=== PATIENT | male | born 1975 | race Hispanic/Latino ===

== ENCOUNTER 2018-11-18 21:30 | Observation (INO) | payer OTHER ==
[~2018-11-18] VITALS: Ht 165.1 cm; Wt 87.1 kg
[2018-11-18] MEDS ORDERED: NITROGLYCERIN 2% OINT 1 GM PKT TOP ONE (21:45)
[2018-11-18] MEDS ORDERED: ASPIRIN 81 MG CHEW TAB PO NR (21:45)
[2018-11-18 21:48] LABS: BASOPHILS # (AUTO) 0.1 (0.0-0.1); BASOPHILS % 1.1 % (0.0-1.0); EOSINOPHILS # (AUTO) 0.1 (0.0-0.4); EOSINOPHILS % 1.7 % (0.0-6.0); HEMATOCRIT 43.3 % (38.2-49.6); HEMOGLOBIN 15.5 g/dL (14.0-18.0); LYMPHOCYTES # (AUTO) 2.8 (1.0-3.2); LYMPHOCYTES % 35.2 % (18.0-39.1); MEAN CORPUSCULAR HEMOGLOBIN 30.9 pg (28-32); MEAN CORPUSCULAR HGB CONC 35.8 g/dL (31-35); MEAN CORPUSCULAR VOLUME 86.3 fL (81-99); MONOCYTES # (AUTO) 0.5 (0.2-0.8); MONOCYTES % 6.9 % (4.4-11.3); NEUTROPHILS # (AUTO) 4.3 (2.1-6.9); PLATELET COUNT 121 x10e3/uL (140-360); RED BLOOD COUNT 5.02 x10e6/uL (4.3-5.7); RED CELL DISTRIBUTION WIDTH 12.2 % (11.7-14.4)
[2018-11-18 21:54] LABS: INR 0.89; PROTHROMBIN TIME 12.9 seconds (11.9-14.5)
[2018-11-18 21:55] LABS: PARTIAL THROMBOPLASTIN TIME 33.1 seconds (23.8-35.5)
[2018-11-18 22:02] LABS: CLARITY,URINE CLEAR (CLEAR); COLOR,URINE YELLOW (YELLOW); LEUKOCYTE ESTERASE ,URINE NEGATIVE (NEGATIVE); NITRITE,URINE NEGATIVE (NEGATIVE)
[2018-11-18 22:03] LABS: BACTERIA,URINE FEW /HPF; BILIRUBIN,URINE NEGATIVE (NEGATIVE); EPITHELIAL CELLS,URINE FEW /LPF; KETONES,URINE NEGATIVE (NEGATIVE); PROTEIN,URINE DIPSTICK TRACE (NEGATIVE); URINE UROBILINOGEN 0.2 mg/dL (0.2 - 1)
[2018-11-18 22:06] LABS: ALANINE AMINOTRANSFERASE 42 IU/L (0-55); ALBUMIN 4.3 g/dL (3.5-5.0); ALBUMIN/GLOBULIN RATIO 1.3 (0.8-2.0); ALKALINE PHOSPHATASE 37 IU/L (40-150); ANION GAP 13.3 mmol/L (8-16); BLOOD UREA NITROGEN 11 mg/dL (7-26); BUN/CREATININE RATIO 12 (6-25); CARBON DIOXIDE 26 mmol/L (22-29); CHLORIDE 102 mmol/L (98-107); CREATINE KINASE 157 IU/L (30-200); CREATININE, SERUM 0.93 mg/dL (0.72-1.25); EST GLOMERULAR FILTRATION RATE > 60 ML/MIN (60-); GLUCOSE 92 mg/dL (74-118); POTASSIUM 3.3 mmol/L (3.5-5.1); SODIUM 138 mmol/L (136-145)
[2018-11-18] MEDS ORDERED: ASPIRIN 81 MG CHEW TAB ONE (22:25)
[2018-11-18] MEDS ORDERED: POTASSIUM CHLORIDE 20 MEQ TAB CR PO STA (22:49)
--- NOTE | 2018-11-18 22:57 | Diagnostic Imaging Report ---
EXAMINATION: CHEST SINGLE (PORTABLE) INDICATION: CHEST PAIN COMPARISON: None FINDINGS: AP view TUBES and LINES: None. LUNGS: Lungs are not well inflated. There is no evidence of pneumonia or pulmonary edema. PLEURA: No pleural effusion or pneumothorax. HEART AND MEDIASTINUM: The cardiomediastinal silhouette is unremarkable. BONES AND SOFT TISSUES: No acute osseous lesion. Soft tissues are unremarkable. UPPER ABDOMEN: No free air under the diaphragm. IMPRESSION: No acute thoracic abnormality. Signed by: DR. Tamir Roberson MD on 11/18/2018 10:54 PM
[2018-11-18] MEDS ORDERED: SODIUM CHLORIDE FLUSH 10 ML SYR INJ PRN (23:15)
[2018-11-18] MEDS ORDERED: ONDANSETRON HCL INJ 2MG/ML 2ML 2 MG/ML VIAL IV PRN (23:15)
--- OUTSIDE RECORDS SUMMARY | 2018-11-18 23:15 | XMS REPORT ---
Author Author [facility] Address Unknown Phone Unavailable Care Team Providers Care Group Cio Name Role Phone Luciano VELSAQUEZ Unavailable Unavailable Problems This patient has no known problems. Allergies, Adverse Reactions, Alerts This patient has no known allergies or adverse reactions. Medications This patient has no known medications. Results Test Description Test Time Test Comments Text Results Atomic Results Result Comments CHEST SINGLE (PORTABLE) 2018-11-18 22:53:00 [facility] [address] [place] [address] Patient Name: SHARON MANNING MR #: [id number] : 1975 Age/Sex: 43/M Req #: [id number] Adm Physician: Ordered by: PRASHANTH VELASQUEZ MD Report #: [id number] Location: ER Room/Bed: Procedure: [id number] DX/CHEST SINGLE (PORTABLE) Exam Date: 11/18/18 Exam Time: 2144 REPORT STATUS: Signed EXAMINATION: CHEST SINGLE (PORTABLE) INDICATION: CHEST PAIN COMPARISON: None FINDINGS: AP view TUBES and LINES: None. LUNGS: Lungs are not well inflated. There is no evidence of pneumonia or pulmonary edema. PLEURA: No pleural effusion or pneumothorax. HEART AND MEDIASTINUM: The cardiomediastinal silhouette is unremarkable. BONES AND SOFT TISSUES: No acute osseous lesion. Soft tissues are unremarkable. UPPER ABDOMEN: No free air under the diaphragm. IMPRESSION: No acute thoracic abnormality. Signed by: DR. Tamir Roberson MD on 11/18/2018 10:54 PM Dictated By: TAMIR ROBERSON MD 53 Transcribed By: KATIE on 11/18/182253 COPY TO: PRASHANTH VELASQUEZ MD
[2018-11-18] MEDS: FAMOTIDINE 20 MG/2 ML VIAL IV SCH (23:48)
[2018-11-19] VITALS (8 sets, daily range): BP systolic 101–130; BP diastolic 59–85
--- NOTE | 2018-11-19 00:10 | NUR ---
RECEIVED REPORT FROM HUNTER DONG NURSE. PATIENT ARRIVED TO THE UNIT VIA WHEELCHAIR.
[2018-11-19] MEDS: NITROGLYCERIN 2% OINT 1 GM PKT TOP SCH ×4 (04:51→18:00)
--- NOTE | 2018-11-19 06:03 | NUR ---
PATIENT IS RESTING IN BED. AT BEDSIDE. CALL DAVIS WITHIN REACH.
--- NOTE | 2018-11-19 06:56 | NUR ---
Report given to oncoming nurse. Patient is lying in bed. no pain or distress. call light within reach.
--- NOTE | 2018-11-19 07:00 | NUR ---
Walking rounds done. Patient denies any chest pain or SOB at this time. POC discussed in Bhutanese per patient preference. He was instructed to call for assistance and verbalized understanding. Bed in lowest position, locked and call castillo within reach.
[2018-11-19 08:06] LABS: CREATINE KINASE 108 IU/L (30-200)
[2018-11-19 08:07] LABS: CHOL/HDL RATIO 5.7 (3.9-4.7)
[2018-11-19] MEDS: FAMOTIDINE 20 MG/2 ML VIAL IV SCH (08:46)
[2018-11-19] MEDS ORDERED: ASPIRIN 81 MG ENTERIC COATED PO SCH (09:00)
[2018-11-19] MEDS ORDERED: ACETAMINOPHEN 325 MG TAB PO PRN (10:45)
--- NOTE | 2018-11-19 12:42 | NUR ---
SOCIAL WORK INITIAL ASSESSMENT Cargo Operations Agent to bedside to discuss plan of care with patient/family. CM/SW role and care transitions discussed. Anticipated discharge plan discussed along with duration of care. CM/SW discussed patients right to make decisions in care. CM/SW work hours given. Patient lives: IN OWN HOUSE WITH FAMILY Admit/Transfer: VIA ED POA/Emergency contact: GRACIE [phone] Current/Previous Home Health: NONE PCP/Follow-up Care: NONE Current/Previous DME: NONE Other Services: NONE Employment Status: [employer] Areas of Concerns: NONE Referral Needs: NONE Education Needs: NONE IMM/VIEYRA given and signed (if applicable): NA Goal for discharge: RETURN HOME CM/SW left business card at the bedside with contact information. Name and number was also written on the patients whiteboard. Patient verbalized understanding of discussion. CM will follow-up with ongoing discharge and transition of care needs.
--- NOTE | 2018-11-19 12:44 | NUR ---
POST DISCHARGE STATUS FORM FILED ON CHART NO NEEDS
--- NOTE | 2018-11-19 15:09 | Consultation ---
DATE OF CONSULTATION: November 19, 2018 CARDIOLOGY CONSULTATION INDICATIONS: Chest pain. Mr. Williamson is a 43-year-old gentleman without medical problems who smokes, who comes in with 2 to 3 days of sharp chest pain and back pain. This is nonexertional. He has never had these symptoms before. Denies any history of coronary artery disease. PAST MEDICAL HISTORY: Listed above. SOCIAL HISTORY: Patient smokes. Occasionally drinks alcohol. FAMILY HISTORY: Significant for premature coronary artery disease in his mother. REVIEW OF SYSTEMS: Negative except as dictated in the history of present illness. PHYSICAL EXAMINATION VITALS: Afebrile, heart rate 64, blood pressure 107/62, O2 sats 96%. CARDIOVASCULAR: Regular rhythm. No murmurs or gallops. LUNGS: Clear to auscultation bilaterally. ABDOMEN: Soft. Bowel sounds are adequate. Troponin is negative. LDL is 74. Remaining labs were reviewed and are normal. Chest x-ray shows no acute changes. EKG is normal. ASSESSMENT: Unstable angina. RECOMMENDATIONS: Rule out myocardial infarction by serial check of cardiac enzymes. Further risk stratification with echocardiogram and exercise nuclear stress test. I thank Dr. Palmer for this consultation. Job#: [id number]
[2018-11-19 15:59] LABS: CREATINE KINASE 92 IU/L (30-200)
--- NOTE | 2018-11-19 16:04 | Cardiology Report ---
DATE OF STUDY: November 19, 2018 PROCEDURE TITLE: Rest stress single isotope SPECT imaging with exercise stress and gated SPECT imaging. INDICATIONS: Chest pain. PROCEDURE: The patient performed treadmill exercise using a Luis Alberto protocol, exercising for 8 minutes 42 seconds to stage 3 and completing estimated work load of 10.1 metabolic equivalents (METs). The test was terminated due to fatigue. The heart rate was 71 beats per minute at rest and increased to 109 beats at peak exercise, which was 63% of the maximum predicted heart rate. The rest blood pressure was 101/75 and increased to 126/80, which is a normal response. The resting electrocardiogram demonstrated normal sinus rhythm. There were no ST-segment changes consistent myocardial ischemia. Myocardial perfusion imaging was performed at rest following the injection of 11 mCi of tetrofosmin. At peak exercise, the patient was injected with 30.2 mCi of tetrofosmin and exercise was continued for 1 minute. Gated post stress tomographic imaging was performed. The overall quality of the study is fair. Left ventricular cavity is noted to be normal size on the rest and stress studies. SPECT images demonstrate homogeneous trace effusion distribution throughout the myocardium. Gated SPECT imaging reveals normal myocardial thickening and wall motion. The left ventricular ejection fraction was found to be 60%. IMPRESSION: Myocardial perfusion imaging is normal at submaximal stress. Overall left ventricular systolic function was normal without regional or wall motion abnormalities. Job#: [id number] JOYCE
--- NOTE | 2018-11-19 18:00 | NUR ---
Dr. Camacho paged to follow up regarding stress test result, message left. Awaiting call back
--- NOTE | 2018-11-19 18:11 | NUR ---
Per Dr. Camacho patient may be discharged home and follow up in [address] Palmer paged to update and obtain POC.
--- NOTE | 2018-11-19 18:30 | NUR ---
Per Dr. Palmer patient may be discharged home today. He can take over the counter Omeprazole 20 mg PO daily and follow up in 1 week.
--- NOTE | 2018-11-19 19:00 | NUR ---
Report given to oncoming shift.
[2018-11-19] MEDS ORDERED: OMEPRAZOLE40 MG PO (19:02)
== END 2018-11-19 19:28 | disposition home or self-care (01) ==
LOC: ER 21:30 → ERHOLD 23:12 → IMCU 11-19 01:42
PROVIDERS: ADMIT Internal Medicine; ATTEND Internal Medicine
DX: I20.0 Unstable angina (principal); Z82.49 Family history of ischemic heart disease and other diseases of the circulatory system; F17.210 Nicotine dependence, cigarettes, uncomplicated
CPT/HCPCS: 36415 ×2; 71045; 78452; 80053; 80061; 81001; 82550 ×2; 82553 ×2; 84484 ×2; 85025; 85610; 85730; 93005; 93017; 93306; 99284; A9502; G0378 ×2